=== PATIENT | female | born 2000 | race Caucasian/White ===

== ENCOUNTER 2018-04-08 16:40 | Emergency (ER) | payer OTHER, MEDICAID ==
[~2018-04-08] VITALS: Ht 160 cm; Wt 61.7 kg
[2018-04-08 17:48] LABS: ABSOLUTE EOSINOPHILS 0.1 thou/uL (0.0-0.7); ABSOLUTE LYMPHOCYTES 1.4 thou/uL (0.8-5.3); ABSOLUTE MONOCYTES 0.4 thou/uL (0.0-1.2); ABSOLUTE NEUTROPHILS 8.7 thou/uL (1.6-8.1); BASOPHILS 0.3 %; EOSINOPHILS 0.6 %; HEMATOCRIT 45.8 % (37.0-47.0); HEMOGLOBIN 15.3 gm/dL (12.0-15.0); LYMPHOCYTES 13.2 %; MCH 30.5 pg (26.0-34.0); MCHC 33.5 g/dL (28.0-37.0); MCV 90.9 fL (80.0-100.0); MONOCYTES 4.1 %; NUCLEATED RBCS 0 /100WBC; PLATELET COUNT* 203 thou/uL (150-400); POLYS 81.8 %; RBC 5.03 mil/uL (4.20-5.00); RDW-CV 12.3 % (10.5-14.5); WBC 10.6 thou/uL (4.0-11.0)
[2018-04-08 17:56] LABS: CALCIUM 8.8 mg/dL (8.5-10.1); CREATININE 0.8 mg/dL (0.6-1.3); POTASSIUM 3.5 mmol/L (3.5-5.1)
[2018-04-08 18:01] LABS: ALBUMIN 4.3 g/dL (3.4-5.0); TOTAL BILIRUBIN 0.3 mg/dL (<0.1-1.0)
[2018-04-08 19:08] LABS: URINE BILIRUBIN NEGATIVE (Negative); URINE BLOOD NEGATIVE (Negative); URINE CLARITY CLEAR; URINE COLOR YELLOW; URINE GLUCOSE-RANDOM NEGATIVE (Negative); URINE KETONES 2+ (Negative); URINE LEUKOCYTES-REFLEX NEGATIVE (Negative); URINE NITRITE-REFLEX NEGATIVE (Negative); URINE PROTEIN TRACE (Negative); URINE SPECIFIC GRAVITY 1.015 (1.005-1.030); URINE UROBILINOGEN 0.2 E.U./dl (0.2-1.0)
[2018-04-08] MEDS ORDERED: ZPAK PO (19:14)
[2018-04-08 19:35] VITALS: BP 124/69
== END 2018-04-08 19:36 | disposition home or self-care (01) ==
LOC: M.ERS 16:40
PROVIDERS: Physician Assistant
DX: E86.0 Dehydration (principal); R51 Headache; J02.9 Acute pharyngitis, unspecified; Z88.0 Allergy status to penicillin